=== PATIENT | male | born 1990 | race Caucasian/White ===

== ENCOUNTER 2020-12-03 16:14 | Emergency (ER) | payer BC ==
[~2020-12-03] VITALS: Ht 182.9 cm; Wt 58.1 kg
[2020-12-03 16:18] VITALS: BP 123/72
--- NOTE | 2020-12-03 16:21 | NUR ---
Patient ambulated with steady gait to bed 5.
--- NOTE | 2020-12-03 16:22 | NUR ---
DR TELLO AT BEDSIDE EVALUATING PT
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
--- NOTE | 2020-12-03 16:30 | NUR ---
PT WOUND SOAKED IN WARM WATER AND IRRIGATED
--- NOTE | 2020-12-03 17:40 | NUR ---
[place] KENT AT BEDSIDE FOR PROCEDURE
[2020-12-03] MEDS ORDERED: BACI1PAC6 TP (17:49)
[2020-12-03] MEDS ORDERED: BACITRACIN OINT 500 UNITS/GM PKT TP ONE (17:50)
--- NOTE | 2020-12-03 17:56 | NUR ---
APPLIED BACITRACIN TO PTS FINGER WOUND AND PLACED IN FINGER TRAP SPLINT AND WRAPPED WITH 1" GUAZE ROLL. CMS WNL BEFORE AND AFTER, ERMD NOTIFIED
[2020-12-03] MEDS: BACITRACIN OINT 500 UNITS/GM PKT TP ONE ×2 (18:13→18:18)
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
[2020-12-03 18:18] VITALS: BP 123/72
== END 2020-12-03 18:24 | disposition home or self-care (01) ==
LOC: MED 16:14
DX: S67.196A Crushing injury of right little finger, initial encounter (principal); Z79.899 Other long term (current) drug therapy; W20.8XXA Other cause of strike by thrown, projected or falling object, initial encounter; Y93.89 Activity, other specified; Y92.89 Other specified places as the place of occurrence of the external cause; Y99.8 Other external cause status
CPT/HCPCS: 73140; 90471; 90715; 99283